=== PATIENT | male | born 1950 | race African-American/Black ===

== ENCOUNTER 2017-03-17 12:32 | Emergency (ER) | payer MEDICAID ==
[~2017-03-17] VITALS: Ht 180.3 cm; Wt 92.1 kg
[2017-03-17 12:34] VITALS: BP 145/90
[2017-03-17] MEDS ORDERED: KETOROLAC 30 MG/1 ML IM ONE (13:30)
[2017-03-17] MEDS ORDERED: KETOROLAC 30 MG/1 ML ONE (13:34)
[2017-03-17] MEDS ORDERED: HYDR-3138 PO (13:58)
[2017-03-17] MEDS ORDERED: LISI30TA4 PO (13:58)
[2017-03-17] MEDS ORDERED: DOCU100C8 PO (13:58)
[2017-03-17] MEDS ORDERED: ALLO300T PO (13:58)
[2017-03-17] MEDS ORDERED: HYDR25TA6 PO (13:58)
[2017-03-17] MEDS ORDERED: MELO-190 PO (13:58)
[2017-03-17] MEDS ORDERED: EZET10TA3 PO (13:58)
[2017-03-17] MEDS ORDERED: LORA10TA3 PO (13:58)
[2017-03-17] MEDS ORDERED: AMLO10TA2 PO (13:58)
[2017-03-17] MEDS ORDERED: METF500T4 PO (13:58)
[2017-03-17] MEDS ORDERED: ERGO500017 PO (13:58)
== END 2017-03-17 14:18 | disposition home or self-care (01) ==
LOC: ED 14:15
DX: M25.561 Pain in right knee (principal); G89.29 Other chronic pain; I10 Essential (primary) hypertension; M10.9 Gout, unspecified
CPT/HCPCS: 73564; 96372; 99284; J1885